=== PATIENT | female | born 1950 | race Caucasian/White ===

== ENCOUNTER 2019-09-20 21:56 | Emergency (ER) | payer MEDICARE, OTHER ==
[~2019-09-20] VITALS: Ht 177.8 cm; Wt 74.4 kg
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
--- NOTE | 2019-09-20 23:52 | NUR ---
CALLED [facility] PT'S DAUGHTER, LEFT MESSAGE AT THIS TIME.
--- NOTE | 2019-09-21 00:04 | NUR ---
PT WITH SITTER AT BEDSIDE, PT KEEPS WANDERING AROUND THE EMERGENCY ROOM, PT REFUSES TO STAY IN BED, DR TRACEY AWARE. REMINDED PT TO STAY IN BED FOR SAFETY.
--- NOTE | 2019-09-21 03:00 | NUR ---
Patient is resting comfortably in bed with eyes closed. Easily aroused. VSS
[2019-09-21 07:01] VITALS: BP 133/84
--- NOTE | 2019-09-21 07:01 | NUR ---
PT AWAKE, A/OX4. Patient discharged to home in stable condition. Written and verbal after care instructions given. Patient verbalizes understanding of instruction.Pt ambulatory with a steady gait
== END 2019-09-21 07:02 | disposition home or self-care (01) ==
LOC: ER 21:59 → EDBD 21:59 → ER 09-21 07:02
DX: F10.129 Alcohol abuse with intoxication, unspecified (principal); R51 Headache; Y90.9 Presence of alcohol in blood, level not specified
CPT/HCPCS: 70450-TC; 72125-TC

== ENCOUNTER 2023-05-07 18:21 | Emergency (ER) | payer OTHER ==
[~2023-05-07] VITALS: Ht 147.3 cm; Wt 54.4 kg
[2023-05-07 19:35] LABS: BASOPHILS # (AUTO) 0.1 K/uL (0.0-0.2); BASOPHILS % (AUTO) 0.8 % (0.0-2.0); EOSINOPHILS # (AUTO) 0.2 K/uL (0.0-0.7); EOSINOPHILS % (AUTO) 2.7 % (0.0-6.0); HEMATOCRIT 26 % (33-45); HEMOGLOBIN 8.7 g/dL (11.5-14.8); LYMPHOCYTES # (AUTO) 2.6 K/uL (0.8-4.8); LYMPHOCYTES % (AUTO) 31.4 % (20.0-44.0); MEAN CORPUSCULAR HEMOGLOBIN 30 PG (26.0-33.0); MEAN CORPUSCULAR HGB CONC 34 g/dl (31.0-36.0); MEAN CORPUSCULAR VOLUME 90 fL (82-100); MONOCYTES # (AUTO) 1.1 K/uL (0.1-1.30); MONOCYTES % (AUTO) 13.6 % (2.0-12.0); NEUTROPHILS # (AUTO) 4.3 K/uL (1.8-8.9); NEUTROPHILS % (AUTO) 51.5 % (43.0-81.0); PLATELET COUNT (AUTO) 255 K/uL (150-450); RED BLOOD CELL COUNT(AUTO) 2.85 MIL/uL (4.0-5.2); RED CELL DISTRIBUTION WIDTH 18.6 % (11.5-15.0); WHITE BLOOD COUNT (AUTO) 8.4 K/uL (4.3-11.0)
[2023-05-07 20:03] LABS: ALANINE AMINOTRANSFERASE 17 U/L (12-78); ALBUMIN 2.9 g/dL (3.4-5.0); ALKALINE PHOSPHATASE 51 U/L (46-116); ASPARTATE AMINOTRANSFERASE 36 U/L (15-37); BILIRUBIN,DIRECT 0.1 mg/dL (0.0-0.2); BILIRUBIN,TOTAL 0.4 mg/dL (0.2-1.0); CARBON DIOXIDE 25 mmol/L (21-32); CHLORIDE 98 mmol/L (98-107); CREATININE 1.7 mg/dL (0.6-1.3); GLUCOSE 85 mg/dL (74-106); POTASSIUM 3.7 mmol/L (3.5-5.1); SODIUM SERUM 127 mmol/L (136-145); TOTAL PROTEIN, SERUM 13.2 g/dL (6.4-8.2); UREA NITROGEN, BLOOD 38 mg/dL (7-18)
[2023-05-07 20:36] LABS: APPEARANCE,URINE CLEAR (CLEAR); BILIRUBIN,URINE NEGATIVE (NEGATIVE); BLOOD, URINE TRACE-INTA Ery/uL (NEGATIVE); COLOR,URINE YELLOW (YELLOW); KETONES,URINE NEGATIVE (NEGATIVE); LEUKOCYTE ESTERASE ,URINE TRACE (NEGATIVE); NITRITE, URINE NEGATIVE (NEGATIVE); PROTEIN,URINE 1+ mg/dl (NEGATIVE); UGLUCOSE NEGATIVE (NEGATIVE); UROBILINOGEN,URINE 0.2 EU/dL (0.2)
[2023-05-07 20:41] LABS: ADD URINE CULTURE NO; BACTERIA,URINE RARE /HPF (None Seen); MUCUS,URINE Few /LPF (None Seen)
[2023-05-07 22:29] VITALS: TEMP 97.9
[2023-05-08 01:32] VITALS: BP 136/72; O2SAT 93
== END 2023-05-08 03:41 | disposition short-term general hospital (02) ==
LOC: ER 18:26
DX: S32.040A Wedge compression fracture of fourth lumbar vertebra, initial encounter for closed fracture (principal); W18.30XA Fall on same level, unspecified, initial encounter; Y93.89 Activity, other specified; Y92.89 Other specified places as the place of occurrence of the external cause; Y99.8 Other external cause status
CPT/HCPCS: 36415; 72131-TC; 80048-TC; 80076-TC; 81001; 85025-TC